=== PATIENT | female | born 1995 | race Caucasian/White ===

== ENCOUNTER → 2018-03-06 09:13 | Outpatient (CLI) | payer OTHER, SELFPAY ==
--- NOTE | 2018-03-06 09:18 | RAD_ITS ---
STUDY: X-RAY - LUMBAR SPINE REASON FOR EXAM: Female, 23 years old. Back pain for 2 weeks. Diagnosed with scoliosis at age 14. TECHNIQUE: 5 view(s) of the lumbar spine were obtained. COMPARISON: March 10, 2010. FINDINGS: Normal lumbar lordosis. There is approximate 18 degree levoscoliosis of the lumbar spine with the convexity L3. There is a normal alignment of the vertebrae. Normal vertebral bodies and endplates. Normal disc space heights. There is no evidence of acute fracture or loss of vertebral axial height. There is no demonstrated spondylolysis of the pars interarticulares. The soft tissue structures are unremarkable. RAD/L/S Spine Min 4 Views IMPRESSION: Stable levoscoliosis. Electronically Signed: Boogie Smith DO at 23:12 EDT Tel [phone], Service support ,
--- NOTE | 2018-03-06 09:18 | RAD_ITS ---
STUDY: X-RAY - THORACIC SPINE REASON FOR EXAM: Female, 23 years old. Diagnosis scoliosis at age 14. Back pain for 2 weeks. TECHNIQUE: 2 view(s) of the thoracic spine were obtained. COMPARISON: Scoliosis study, March 10, 2010 FINDINGS: Normal kyphosis of the thoracic spine. There is no substantial scoliosis. Normal thoracic vertebrae and endplates. Normal disc space heights. There is no evidence of acute fracture or loss of vertebral axial height. The soft tissue structures are unremarkable. RAD/Thoracic Spine 3 Views IMPRESSION: Normal x-ray examination of the thoracic spine. Electronically Signed: Boogie Smith DO at 23:16 EDT Tel [phone], Service support ,
== END ==
PROVIDERS: Family Provider Family Medicine; PCP Family Medicine; Referring Provider Family Medicine; Visit Provider Family Medicine
DX: M54.9 Dorsalgia, unspecified (principal)
CPT/HCPCS: 72072; 72110

== ENCOUNTER → 2018-11-08 | Outpatient (CLI) | payer OTHER, SELFPAY ==
[2018-11-08 17:36] LABS: Absolute Lymphocyte Count 2.75 X10^3/ul (0.83-4.51); Absolute Neutrophil Count 3.8 X10^3/uL (2.0-7.7); Basophil# 0.02 X10^3/uL; Basophil% 0.3 % (0-1); Eosinophils% 2.7 % (0-5); Hematocrit 40.6 % (37-47); Hemoglobin 13.5 g/dl (12.0-15.0); Lymphocyte # 2.75 X10^3/ul (4.0); Lymphocyte % 37.5 % (19-41); Mean Corp Hgb Conc 33.3 g/gl (32-36); Mean Corpuscular Volume 87.3 fL (81-99); Mean Platelet Vol. 10.8 fl (6.2-12.0); Monocyte# 0.54 X10^3/uL; Monocyte% 7.4 % (0-10); Neutrophil # 3.82 X10^3/uL (2.7-7.7); Platelet Count 290 K/mm3 (150-450); RBC Distribution Width CV 12.4 % (11.6-14.6); RBC Distribution Width SD 39.1 fl (35.1-43.9); Red Blood Count 4.65 M/mm3 (4.2-5.4); White Blood Count 7.3 K/mm3 (4.4-11.0)
[2018-11-08 17:43] LABS: Thyroid Stim Hormone (TSH) 2.05 uIU/mL (0.358-3.74)
[2018-11-08 17:46] LABS: POSITIVE COUNT NO; POSITIVE DIFFERENTIAL NO; POSITIVE MORPHOLOGY NO
== END | disposition home or self-care (01) ==
LOC: BFHLAB 16:33
PROVIDERS: Family Provider Family Medicine; PCP Family Medicine; Visit Provider Family Medicine
DX: R00.2 Palpitations (principal)
CPT/HCPCS: 36415; 84443; 85025

== ENCOUNTER → 2018-11-19 | Outpatient (CLI) | payer OTHER, SELFPAY | END | disposition home or self-care (01) | LOC: PSN 09:13 | PROVIDERS: Family Provider Family Medicine; PCP Family Medicine; Referring Provider Family Medicine; Visit Provider Family Medicine | DX: R00.2 Palpitations (principal) | CPT/HCPCS: 93225; 93226 ==

== ENCOUNTER → 2019-01-07 | Outpatient (CLI) | payer OTHER, SELFPAY ==
[2019-01-07 12:42] LABS: ALB/GLOB Ratio 0.9 RATIO (0.9-2.4); AST(SGOT) 25 U/L (15-37); Alanine Aminotransfer ALT/SGPT 39 U/L (13-56); Albumin, Serum 3.6 g/dL (3.2-5.0); Alkaline Phosphatase 75 U/L (45-117); Anion Gap 5 (5-15); BUN 9 mg/dL (7-18); BUN/Creat Ratio 11.9 RATIO (10-20); Calcium,Total 9.1 mg/dL (8.5-10.1); Chloride 108 mmol/L (98-107); Creatinine, Serum 0.76 mg/dL (0.55-1.02); EST Glomerular Filtration Rate 99 mL/min (>60); Est Glom Filt Rate - Afr Amer 119 mL/min (>60); Globulin 4.2 g/dL (2.2-4.2); Glucose 83 mg/dL (74-106); Potassium 4.2 mmol/L (3.5-5.1); Protein, Total 7.8 g/dL (6.4-8.2); Sodium Level 141 mmol/L (136-145)
[2019-01-07 12:44] LABS: Vitamin D,25 Hydroxy 32.2 ng/mL (29.95-100.01)
[2019-01-09 14:16] LABS: ANTINUCLEAR ANTIBODIES DIRECT Negative (Negative)
== END | disposition home or self-care (01) ==
LOC: LAB.FUTURE 09:12
PROVIDERS: Family Provider Family Medicine; PCP Family Medicine; Visit Provider Family Medicine
DX: R53.82 Chronic fatigue, unspecified (principal)
CPT/HCPCS: 36415; 80053; 82306; 82533; 86038; 86225; 86235

== ENCOUNTER → 2019-01-21 | Outpatient (CLI) | payer OTHER, SELFPAY ==
--- NOTE | 2019-01-21 08:49 | ECHOD_ITS ---
Reason For Study: Palpitations Procedure This was a 2D Doppler, Color Flow transthoracic echocardiogram. The exam was of adequate technical quality. Exam performed in department. Left Ventricle Normal LV size. Left ventricular systolic function is normal. The estimated ejection fraction is 60 %. No evidence for diastolic dysfunction. No regional wall motion abnormalities noted. Right Ventricle Normal RV size. Normal systolic function. Atria Normal left atrium. Normal right atrium. No doppler evidence for ASD. Mitral Valve There is no mitral annular calcification. Normal mitral valve. Trivial mitral valve insufficiency. Tricuspid Valve Normal tricuspid valve. Trivial tricuspid valve insufficiency. Right ventricular systolic pressure estimated to be 28 mmHg. Aortic Valve Trisinus/trileaflet aortic valve. Normal aortic valve. Pulmonic Valve The pulmonic valve is not well visualized. Great Vessels The aortic root was not well visualized. Pericardium/Pleural No pericardial effusion. MMode/2D Measurements & Calculations LVIDd: 4.1 cm IVSd: 0.66 cm LA dimension: 3.0 cm LVIDs: 2.4 cm LVPWd: 0.85 cm RVDd: 3.2 cm FS: 40.6 % LAV(MOD-bp): 33.5 ml LA A4 area: 13.1 cm2 RA A4 area: 14.1 cm2 LAV(MOD-bp) Indexed: 18.7 ml/m2 LAV(MOD-sp2): 41.5 ml LAV(MOD-sp4): 26.4 ml Time Measurements MV dec time: 0.18 sec Doppler Measurements & Calculations MV E max scooter: 96.5 cm/sec Lat Peak E' Scooter: 17.5 cm/sec Med Peak E' Scooter: 16.1 cm/sec MV A max scooter: 56.6 cm/sec E/E' lat: 5.5 E/E' med: 6.0 MV E/A: 1.7 MV V2 max: 95.8 cm/sec MV P1/2t max scooter: 95.8 cm/sec Ao V2 max: 144.6 cm/sec MV max P.7 mmHg MV P1/2t: 111.3 msec Ao max P.4 mmHg MV V2 mean: 51.9 cm/sec MV dec slope: 251.9 cm/sec2 Ao V2 mean: 95.7 cm/sec MV mean P.3 mmHg MVA(P1/2t): 2.0 cm2 Ao mean P.1 mmHg MV V2 VTI: 25.6 cm Ao V2 VTI: 27.6 cm LV V1 max: 123.1 cm/sec PA V2 max: 89.6 cm/sec TR max scooter: 248.8 cm/sec LV V1 max P.1 mmHg TR max P.8 mmHg LV V1 mean P.2 mmHg LV V1 mean: 82.0 cm/sec LV V1 VTI: 24.8 cm Interpretation Summary Left ventricular systolic function is normal. The estimated ejection fraction is 60 %. Trivial mitral valve insufficiency. Trivial tricuspid valve insufficiency. Right ventricular systolic pressure estimated to be 28 mmHg. No evidence for diastolic dysfunction. Ordering Physician: Hosea Bales Referring Physician: Hosea Bales Performed By: Pawan Hurtado RCS
== END | disposition home or self-care (01) ==
LOC: CVS 08:46
PROVIDERS: Family Provider Family Medicine; PCP Family Medicine; Referring Provider Family Medicine; Visit Provider Family Medicine
DX: I49.3 Ventricular premature depolarization (principal); R00.2 Palpitations; I47.1 Supraventricular tachycardia
CPT/HCPCS: 93306